=== PATIENT | female | born 1955 | race Caucasian/White ===

== ENCOUNTER → 2017-10-10 | Outpatient (CLI) | payer OTHER ==
[2016-03-11 16:30] VITALS: BP 110/61
[~2017-10-10] MED LIST: ASPI-612 PO; CYCL10TA2 PO; HYDR-2758 PO; LISI-338 PO; LISI2.5T PO; METO25TA4 PO; NITR0.4T SL; POLY17PO3 PO; TICA90TA PO
--- NOTE | 2017-10-10 13:43 | CARD ---
APPROVED REPORT EXAM: Two-dimensional and M-mode echocardiogram with Doppler and color Doppler. Other Information Quality : GoodHR: 52bpm INDICATION Cardiac Disease: CAD RISK FACTORS Obesity LEFT VENTRICLE The left ventricle is normal size. There is normal left ventricular wall thickness. The left ventricu lar systolic function is normal and the ejection fraction is within normal range. LV ejection fractio n of 55-60%. There is normal LV segmental wall motion. Transmitral Doppler flow pattern is normal for age. RIGHT VENTRICLE The right ventricle is normal size. The right ventricular systolic function is normal. ATRIA The left atrium size is normal. The right atrium size is normal. The interatrial septum is intact wit h no evidence for an atrial septal defect or patent foramen ovale as noted on 2-D or Doppler imaging. AORTIC VALVE The aortic valve is mildly thickened. Doppler and Color Flow revealed trace aortic regurgitation. The re is no significant aortic valvular stenosis. MITRAL VALVE The mitral valve is mildly thickened. There is no evidence of mitral valve prolapse. There is no mitr al valve stenosis. Doppler and Color-flow revealed trace mitral regurgitation. TRICUSPID VALVE The tricuspid valve is normal in structure and function. Doppler and Color Flow revealed no tricuspid valve regurgitation noted. There is no tricuspid valve prolapse or vegetation. There is no tricuspid valve stenosis. PULMONIC VALVE The pulmonary valve is normal in structure and function. Doppler and Color Flow revealed trace pulmon ic valvular regurgitation. GREAT VESSELS The aortic root is normal in size. IVC was not visualized. PERICARDIAL EFFUSION There is no pleural effusion. There is no evidence of significant pericardial effusion. Critical Notification Critical Value: No <Conclusion> The left ventricle is normal size. The left ventricular systolic function is normal and the ejection fraction is within normal range. LV ejection fraction of 55-60%. There is no significant aortic valvular stenosis. Doppler and Color Flow revealed trace aortic regurgitation. Doppler and Color-flow revealed trace mitral regurgitation. Doppler and Color Flow revealed no tricuspid valve regurgitation noted.
== END | disposition home or self-care (01) ==
LOC: ECHO 09:52
PROVIDERS: ATTEND Internal Medicine Cardiovascular Disease
DX: I25.10 Atherosclerotic heart disease of native coronary artery without angina pectoris (principal); E66.9 Obesity, unspecified
CPT/HCPCS: 93306

== ENCOUNTER → 2018-10-10 | Outpatient (CLI) | payer OTHER ==
[2018-01-02 11:00] VITALS: BP 128/67
[~2018-10-10] MED LIST changes: +ATOR20TA58 PO; +CETI10TA16 PO; +FURO40TA4 PO; -HYDR-2758 PO; +HYDR-2761 PO; +LEVO500T59 PO; +METF500T3 PO; +MONT10TA9 PO; +OMEP40CA5 PO; +POLY17PO28 PO; -POLY17PO3 PO; +POTA20TA4 PO
--- NOTE | 2018-10-10 10:11 | CARD ---
MR#: [id number] Date of Study: 10/10/2018 Ordering Physician: ENIO STRANGE, Referring Physician: ENIO STRANGE, Tech: Sheridan Batista [facility] APPROVED REPORT EXAM: Two-dimensional and M-mode echocardiogram with Doppler and color Doppler. Other Information Quality : Technically LimitedHR: 60bpm Rhythm : NSRTechnically limited study due to body habitus. INDICATION CAD 2D DIMENSIONS RVDd3.0 (2.9-3.5cm)Left Atrium(2D)3.7 (1.6-4.0cm) IVSd0.8 (0.7-1.1cm)Aortic Root(2D)3.0 (2.0-3.7cm) LVDd3.9 (3.9-5.9cm)LVOT Diameter2.1 (1.8-2.4cm) PWd0.9 (0.7-1.1cm)IVSs1.3 (0.8-1.2cm) LVDs2.6 (2.5-4.0cm)FS (%) 33.9 % PWs1.3 (0.8-1.2cm)SV41.2 ml LVEF(%)63.5 (>50%) M-Mode DIMENSIONS Left Atrium(MM)3.70 (2.5-4.0cm)Aortic Root3.60 (2.2-3.7cm) Aortic Valve AoV Peak Mathieu.130.2cm/sAoV VTI26.7cm AO Peak GR.6.8mmHgLVOT Peak Mathieu.89.0cm/s LVOT VTI 22.41cmAO Mean GR.3mmHg SYED (VMAX)1.58re1YCO (VTI)2.79cm2 Mitral Valve MV E Euatfeoz84.4cm/sMV DECEL KCAH446ed MV A Rhwcscrl03.4cm/sMV JIP88xv E/A Ratio1.0MVA (PHT)2.88cm2 LEFT VENTRICLE The left ventricle is normal size. There is mild concentric left ventricular hypertrophy. The left ve ntricular systolic function is normal. The Ejection Fraction is 55-60%. There is normal LV segmental wall motion. RIGHT VENTRICLE The right ventricle is normal size. There is normal right ventricular wall thickness. The right ventr icular systolic function is normal. ATRIA The left atrium size is normal. The right atrium size is normal. The interatrial septum is intact wit h no evidence for an atrial septal defect or patent foramen ovale as noted on 2-D or Doppler imaging. AORTIC VALVE The aortic valve is calcified but opens well. The aortic valve is trileaflet. Doppler and Color Flow revealed no significant aortic regurgitation. There is no significant aortic valvular stenosis. MITRAL VALVE The mitral valve is normal in structure and function. There is no evidence of mitral valve prolapse. There is no mitral valve stenosis. Doppler and Color-flow revealed trace mitral regurgitation. TRICUSPID VALVE The tricuspid valve is normal in structure and function. Doppler and Color Flow revealed no tricuspid valve regurgitation noted. There is no tricuspid valve prolapse or vegetation. There is no tricuspid valve stenosis. PULMONIC VALVE Pulmonic valve not well visualized. GREAT VESSELS The aortic root is normal in size. The ascending aorta is normal in size. PERICARDIAL EFFUSION There is no evidence of significant pericardial effusion. Critical Notification Critical Value: No <Conclusion> The left ventricular systolic function is normal. The Ejection Fraction is 55-60%. There is normal LV segmental wall motion. Doppler and Color-flow revealed trace mitral regurgitation. There is no evidence of significant pericardial effusion. Signed by : Vijay Jennings, Electronically Approved : 10/10/2018 10:09:58
== END | disposition home or self-care (01) ==
LOC: ECHO 08:44
PROVIDERS: ATTEND Internal Medicine Cardiovascular Disease
DX: I25.10 Atherosclerotic heart disease of native coronary artery without angina pectoris (principal)
CPT/HCPCS: 93306

== ENCOUNTER → 2019-08-25 | Outpatient (CLI) | payer MEDICARE, OTHER ==
[2018-01-02 11:00] VITALS: BP 128/67
[~2019-08-25] MED LIST changes: +MONT10TA49 PO; -MONT10TA9 PO; -NITR0.4T SL; +NITR0.4T24 SL; +OMEP40CA45 PO; -OMEP40CA5 PO
--- NOTE | 2019-08-25 17:30 | KCIC ---
Bilateral digital screening mammograms with 3-D tomosynthesis: Reason for examination: Routine screening. Comparison is made to previous studies dated 02/22/2014 and 09/15/2009. Bilateral mammograms in CC and oblique projections were obtained with 2-D imaging and 3-D tomosynthesis imaging on a [employer] unit and reviewed on the workstation. Interpretation was made with the benefit of CAD. The skin and nipples show no abnormalities. No abnormal axillary lymph nodes are seen. The breast parenchyma is predominantly fatty. (Breast density: Category A.) There is a new small circumscribed lesion at the 12:00 B position of the left breast measuring approximately 5 mm in size. Recommend further evaluation with ultrasound. There are no other new Dominant masses, suspicious calcifications or architectural distortion. Impression: New 5 mm circumscribed nodule at the 12:00 B position of the left breast. Recommend further evaluation with ultrasound. BI-RAD Category 0: Incomplete. Needs additional imaging evaluation. "Our facility is accredited by the [employer] Mammography Program." This patient's information has been entered into a reminder system for the patient to be notified with the results of her examination and a target date for the next mammogram. Electronically signed by: Danna Jimenez MD (08/25/2019 5:28 PM) [email or web address]
== END | disposition home or self-care (01) ==
LOC: KCIC MAMMO 10:23
PROVIDERS: ATTEND Family Medicine
DX: Z12.31 Encounter for screening mammogram for malignant neoplasm of breast (principal); N63.21 Unspecified lump in the left breast, upper outer quadrant
CPT/HCPCS: 77063; 77067

== ENCOUNTER → 2019-09-11 | Outpatient (CLI) | payer MEDICARE, OTHER ==
[2018-01-02 11:00] VITALS: BP 128/67
--- NOTE | 2019-09-11 15:47 | KCIC ---
MR of the right shoulder HISTORY: Right shoulder pain, injury over one month ago. TECHNIQUE: Routine multiplanar sequences are obtained. FINDINGS: Mild motion degradation. Acromioclavicular joint is mildly degenerative. No evidence of rotator cuff tear. No significant subdeltoid bursal effusion. No significant glenohumeral joint effusion. Heterogeneous signal within the posterosuperior labrum compatible with a tear. There appears to be a Bankart fracture of the anteroinferior glenoid with about 5 mm displacement, although characterization is limited due to some motion degradation. There is also some heterogeneous signal at the base of the anteroinferior labrum. Mild cystic-type change at the posterior lateral humeral head could be degenerative prior Hill-Sachs injury. No acute fracture is seen. No aggressive bone destruction. Heterogeneous signal identified within the subcoracoid recess probably blood product or synovitis. IMPRESSION: 1. Suspect Bankart fracture and/or anteroinferior labral tear, characterization somewhat limited by motion degradation. CT scan through the glenohumeral joint could further characterize fracture if indicated. 2. Posterosuperior labral tear. Electronically signed by: Francisco Chance MD (09/11/2019 3:45 PM) [id number]
== END | disposition home or self-care (01) ==
LOC: KCIC MRI 12:59
PROVIDERS: ATTEND Orthopaedic Surgery
DX: S43.491A Other sprain of right shoulder joint, initial encounter (principal); X58.XXXA Exposure to other specified factors, initial encounter; Y93.89 Activity, other specified; Y92.89 Other specified places as the place of occurrence of the external cause; Y99.8 Other external cause status
CPT/HCPCS: 73221

== ENCOUNTER → 2019-09-15 | Outpatient (CLI) | payer MEDICARE, OTHER ==
[2018-01-02 11:00] VITALS: BP 128/67
--- NOTE | 2019-09-15 13:44 | KCIC ---
Left breast ultrasound: Reason for examination: Small nodule on screening mammogram. Comparison is made to mammographic exam dated 08/25/2019. Ultrasound examination of the left breast and axilla was performed. In the 12:00 position 5 cm above the nipple, there is a hypoechoic circumscribed lesion measuring 4.5 mm in greatest dimension with a complicated cystic/fibrocystic appearance. This corresponds with the area of mammographic concern. No other cystic or solid nodules are seen. No abnormal appearing lymph nodes are seen in the axilla. IMPRESSION: 4.5 mm hypoechoic circumscribed nodule at the 12:00 position. Recommend 6 month follow-up with ultrasound. BI-RADS Category 3: Probably Benign. "Our facility is accredited by the [employer] Mammography Program." This patient's information has been entered into a reminder system for the patient to be notified with the results of her examination and a target date for the next mammogram. Electronically signed by: Danna Jimenez MD (09/15/2019 1:41 PM) [email or web address]
== END | disposition home or self-care (01) ==
LOC: KCIC US 12:50
PROVIDERS: ATTEND Family Medicine
DX: N63.21 Unspecified lump in the left breast, upper outer quadrant (principal)
CPT/HCPCS: 76641

== ENCOUNTER 2019-11-04 06:30 | Day surgery (SDC) | payer MEDICARE, OTHER ==
[~2019-11-04] VITALS: Ht 179.1 cm; Wt 104.0 kg
[~2019-11-04 06:30] MED LIST changes: +CLINDAMYCIN 900MG PREMIX 50 ML IV PRN; +CLOP75TA PO; +EXEN2PEN SQ; +GABA300C18 PO
[2019-11-04] MEDS ORDERED: TRAM100T2 PO (06:32)
[2019-11-04] MEDS ORDERED: PROCHLORPERAZINE 10 MG/2 ML VIAL. IV PRN (07:00)
[2019-11-04] MEDS ORDERED: fentaNYL PF VIAL 100 MCG/2 ML VIAL IV PRN (07:00)
[2019-11-04] MEDS ORDERED: DEXAMETHASONE SOD PHOS 4 MG/ML VIAL ONE ×2 (07:19→08:21)
[2019-11-04] MEDS ORDERED: MIDAZOLAM HCL/PF 2 MG/2 ML VIAL. ONE (07:19)
[2019-11-04] MEDS ORDERED: BUPIVACAINE MPF 0.5% 30 ML VIAL. ONE (07:19)
[2019-11-04 07:47] LABS: BASO # 0.1 x10^3/uL (0.0-0.2); BASO % 1 % (0-3); EOS # 0.3 x10^3/uL (0.0-0.7); EOS % 4 % (0-3); HEMATOCRIT 39.3 % (36.0-47.0); HEMOGLOBIN 13.3 g/dL (12.0-15.5); LYMPH # 2.3 x10^3/uL (1.0-4.8); LYMPH % 26 % (24-48); MEAN CORPUSCULAR HEMOGLOBIN 30 pg (25-35); MEAN CORPUSCULAR HGB CONC 34 g/dL (31-37); MEAN CORPUSCULAR VOLUME 88 fL (79-100); MONO # 0.7 x10^3/uL (0.0-1.1); MONO % 8 % (0-9); NEUT # 5.3 x10^3/uL (1.8-7.7); NEUT % 61 % (31-73); PLATELET COUNT 266 x10^3/uL (140-400); RED BLOOD COUNT 4.46 x10^6/uL (3.50-5.40); RED CELL DISTRIBUTION WIDTH 12.9 % (11.5-14.5); WHITE BLOOD COUNT 8.8 x10^3/uL (4.0-11.0)
[2019-11-04] MEDS: IV RINGERS,LACTATED 1000ML 1,000 ML IV SCH ×2 (07:52→13:20)
[2019-11-04] MEDS ORDERED: fentaNYL PF VIAL 100 MCG/2 ML VIAL ONE (08:12)
[2019-11-04] MEDS ORDERED: INSULIN LISPRO 100 UNIT/ML 3ML VIAL for OP,RR ONLY. SQ PRN (08:15)
[2019-11-04] MEDS ORDERED: PROPOFOL 20 ML IV ONE (08:21)
[2019-11-04] MEDS ORDERED: LIDOCAINE 2% PF 5 ML VIAL. ONE (08:21)
[2019-11-04] MEDS ORDERED: ONDANSETRON PF 4 MG/2 ML VIAL. ONE (08:21)
[2019-11-04] MEDS ORDERED: ROCURONIUM 50 MG/5 ML VIAL. ONE (08:22)
[2019-11-04] MEDS ORDERED: EPINEPHrine VIAL 30 MG/30 ML VIAL ONE (08:39)
--- NOTE | 2019-11-04 08:56 | HP ---
ADMIT DATE: 11/04/2019 CHIEF COMPLAINT: Right shoulder pain. HISTORY OF PRESENT ILLNESS: The patient presents for surgical evaluation and treatment today following ongoing shoulder pain, weakness, stiffness from a fall that occurred on 07/24. She has severe pain with any abduction away from the body and really only has relief of her pain keeping her arm down to the side and continues to have significant weakness. PAST MEDICAL HISTORY: Significant for venous insufficiency of her legs, coronary artery disease with ischemic cardiomyopathy, lumbar spondylosis and spondylolisthesis. PAST SURGICAL HISTORY: Cardiac catheterization and gallbladder surgery. FAMILY HISTORY: Heart disease in her mother who is ; diabetes; kidney disease and lupus in her father, who is ; heart disease in a sister; healthy brother; and healthy children. MEDICATIONS: Baby aspirin daily, nitroglycerin p.r.n., atorvastatin, metoprolol, cyclobenzaprine, tramadol, metformin XR 1000 mg daily, potassium 20 mEq daily, omeprazole, gabapentin 300 mg each day at bedtime. ALLERGIES: INCLUDE CODEINE, WHICH CAUSE HER DIZZINESS; PENICILLIN; ZOFRAN GAVE HER HEADACHE AND OTHER UNPLEASANT SIDE EFFECTS. REVIEW OF SYSTEMS: Still has the right shoulder pain. No other complaints. No chest pain, shortness of breath, recent fever, chills, other illness. PHYSICAL EXAMINATION: VITAL SIGNS: Per admission sheet. HEENT: Atraumatic, normocephalic. HEART: Regular rate and rhythm. LUNGS: Clear to auscultation bilaterally. ABDOMEN: Benign. EXTREMITIES: Examination of the right shoulder reveals active abduction to about 40 degrees only. She appears to have some adhesive capsulitis. I am not able to get her into a position of apprehension or elicit instability. She does have mild rotator cuff weakness in all planes, particularly resisted abduction, external rotation. Internal rotation strength is only slightly limited by pain. She has normal parascapular motion bilaterally, normal examination of the contralateral left shoulder, bilateral elbows and wrists. MRI of the shoulder shows a small Hill-Sachs lesion with a bony Bankart lesion and labral damage and a slight step-off of the anterior inferior fragment on MRI. IMPRESSION: Bony Bankart lesion, right shoulder. TREATMENT PLAN: She continues to be very limited in terms of the shoulder and is unable to really progress with physical therapy. I talked to her about examination under anesthesia, arthroscopic evaluation likely fixation of the bony Bankart lesion and potentially of the labrum along with ongoing physical therapy. She inquired about rotator cuff preoperatively and I told her that we would certainly evaluate that as well and do any other repairs or intervention as necessary. Her restrictions would depend on any repairs conducted and likewise physical therapy dependent on the restrictions and repairs that are indicated and performed. We talked about the possibility of infection, nerve or blood vessel damage, instability, continued pain, stiffness, weakness, other medical or anesthetic complications. All of her questions were answered. She wishes to proceed with surgical evaluation and treatment, which will be planned on an outpatient basis today. GONZALEZ JUAREZ MD DR: CULLEN/gemma JOB#: [id number] / [id number]
[2019-11-04] MEDS ORDERED: SEVOFLURANE > 120 MINUTES. IH ONE (09:35)
[2019-11-04] MEDS ORDERED: ePHEDrine PF IN SALINE 50 MG/10 ML SYRINGE. IV ONE (09:36)
[2019-11-04 10:05] LABS: CALCIUM 9.1 mg/dL (8.5-10.1); GFR 55.6
[2019-11-04] MEDS ORDERED: diphenhydrAMINE 50 MG/ML VIAL ONE (10:12)
[2019-11-04] MEDS ORDERED: GLYCOPYRROLATE 1 MG/5 ML VIAL. ONE (10:12)
[2019-11-04] MEDS ORDERED: NEOSTIGMINE METHYLSULFATE 5 MG/5 ML SYRINGE. ONE (10:12)
[2019-11-04 10:15] LABS: POTASSIUM 2.5 mmol/L (3.5-5.1)
[2019-11-04] MEDS: POTASSIUM CHLORIDE 10MEQ 100 ML IV SCH ×4 (10:30→13:39)
[2019-11-04] MEDS ORDERED: OXYC1TAB19 PO (11:26)
--- NOTE | 2019-11-04 11:39 | DISCH ---
DISCHARGE INSTRUCTIONS Condition on Discharge Condition on Discharge: Stable Activity After Discharge Activity Instructions for Disc: Other, see below (May remove arm from immob ilizer for shower and pendulum exercises) Bathing Instructions: No Tub Bath until see Diet after Discharge Diet after Discharge: Diabetic No Calorie Level Wound Incision Care Wound/Incision Care: Ice to area for comfort, Change dressing (May remove dressing in 3 days may then shower no soaking until sutures removed, report any redness drainage or other concerns) Contacting the DRMarc after DC Call your doctor for: Concerns you may have Follow-Up Follow up with: Dr. Olivo 1 week Follow Up With: Dr. Antonio Sunday11/07/2019 for recheck of electrolytes/potassium GONZALEZ OLIVO MD Nov 04, 2019 11:39
[2019-11-04] MEDS: fentaNYL PF VIAL 100 MCG/2 ML VIAL IV PRN ×2 (11:52→12:41)
--- NOTE | 2019-11-04 12:16 | PDOC4 ---
Operative Note Operative Note Date of surgery: 11/04/2019 Preoperative diagnosis: Right shoulder pain weakness and instability status post fall with bony Bankart lesion on MRI Postoperative diagnosis: Stable bony Bankart lesion and anterior inferior labrum. Large unstable slap lesion, Hill-Sachs defect in cartilage along with additional chondral flap tear full thickness over posterior and central articular humeral surface Operative procedure: Right shoulder arthroscopy extensive labral repair biceps tenodesis, debridement of chondral flap tear and remplissage Surgeon: Pallavi Assist: Ramírez Bell Anesthesia Gen. plus scalene block Estimated blood loss: 10 mL Complications: None, patient remained asymptomatic, but preoperative lab results were called in to surgery near the end of the surgical procedure with a critically low potassium of 2.5, rechecked in recovery room at 2.8, although she remains asymptomatic she is receiving IV potassium replacement and I communicated with her primary care physician Dr. Antonio, who recommended that we double up her oral potassium until scheduled follow-up with his office on Sunday at which time they will recheck her potassium. As we got further direction from the patient however she said she was taking no potassium at all until she waited on her results from her primary care physician and therefore has no current prescription for potassium at all. I therefore wrote for her normal 20 mEq dose daily and will continue the current plan of rechecking her potassium on Sunday. Operative indications: Please see my orthopedic clinic note for detailed operative indications and briefly note that patient is a 64-year-old [id number] female who had a fall back in July sustaining a bony Bankart lesion and has had continued severe pain and weakness really not responding well to physical therapy. MRI findings showed a bony Bankart lesion and I gone over with her the recommended evaluation and treatment and also reviewed with her today that intraoperative judgment including her examination under anesthesia and arthroscopic findings would direct her further definitive treatment appropriately based on those findings and tentatively I would expect the possibility of performing a Bankart repair or other repairs as necessary to help with her stability depending on her intraoperative findings and we would address any additional pathology as appropriate. We talked that the likewise restrictions on an ongoing basis would be dependent on the specific repairs conducted and likely she would have to be in an immobilizer and restricted motion in physical therapy initially based on the expected repairs again which could be modified based on her intraoperative findings. All her questions were answered she wishes to proceed with surgical evaluation and treatment and understands the possibility of ongoing instability pain weakness infection nerve or blood vessel damage medical or other anesthetic complications among others Operative text: Patient was identified procedure verified patient placed in the supine position on the operating table. After adequate amounts of general anesthesia plus a pre-existing scalene block were obtained she was placed decubitus right side up on the large beanbag all bony prominences were well- padded including an axillary roll. The right shoulder was then examined under anesthesia and showed some mild subluxation anteriorly with a xxlh-wwe-pjmee procedure and no multidirectional instability she had full range of motion of the right shoulder. The right shoulder was then prepped and draped in standard sterile fashion placed in the arthroscopic arm garcia with a total of 10 pounds of traction and after timeout was performed patient procedure identified and verified a posterior portal was established and the right shoulder joint entered without difficulty an anterior portal established using spinal needle localization and the right shoulder joint was then systematically examined and the superior labrum had a large unstable tear from 10 o'clock position posteriorly to approximately 3:00 anteriorly and had significant labral fraying as well. The anterior inferior labrum appeared intact as did the anterior- inferior capsule and bony Bankart which was probed and found to be intact. Her rotator cuff showed a partial thickness undersurface tear which was debrided back to stable tissue she did have a Hill-Sachs lesion present in addition to the normal bare area of the humerus and a large chondral flap tear along with a central full-thickness defect of the cartilage on the humeral head. The biceps tendon was noted to be significantly irritated and showing some mild subluxation with an overall visibly intact subscapularis footprint. I therefore elected to proceed with a biceps tenodesis and repair of the extensive labral tear. Biceps was tagged and tenotomized and a posterior superior portal was established through the rotator cuff muscle and to all suture Franky anchors were placed at the 1:00 and 11:00 positions respectively after burring off the superior glenoid for good bleeding bony tissue with the arthroscopic shaver and sutures were placed passed and tied with sliding locking knots backed up by alternating post- half hitches to reapproximate the superior labrum to a good stable rim of tissue. Anterior labrum was debrided as was the chondral flap tear of the humeral head. The Hill-Sachs lesion was then debrided to bleeding bony tissue and a spinal needle localized a small portal for placement of an all suture Franky anchor which was retrieved through the repositioned posterior lateral portal and the original suture placement likewise retrieved over the rotator cuff to achieve a mattress repair and complete the remplissage portion of the procedure which did restore her stability as expected. Biceps tenodesis was then performed with a Cleanify fastener which was placed along with the trimmed and tensioned biceps tendon into a 7 mm x 20 mm depth hole in the lower portion of the bicipital groove with excellent tension and fixation noted. Portals were then closed with buried Vicryl and skin closure with nylon sterile dressings were applied patient was placed in an immobilizer transferred to recovery room in stable condition having tolerated the procedure well. Ramírez Bell nurse practitioner was present for the procedure and assisted in the prepping draping positioning visualization and closure GONZALEZ JUAREZ MD Nov 04, 2019 12:16
[2019-11-04] MEDS ORDERED: POTA20TA4 PO (13:46)
[2019-11-04 14:59] VITALS: BP 130/62
[2019-11-04] MEDS ORDERED: oxyCODONE/APAP 7.5/325 1 TAB TABLET PO ONE (15:00)
== END 2019-11-04 16:15 | disposition home or self-care (01) ==
LOC: SURG 06:30
PROVIDERS: ATTEND Orthopaedic Surgery
DX: M25.511 Pain in right shoulder (principal); M24.411 Recurrent dislocation, right shoulder; M24.111 Other articular cartilage disorders, right shoulder; S43.431A Superior glenoid labrum lesion of right shoulder, initial encounter; S42.201A Unspecified fracture of upper end of right humerus, initial encounter for closed fracture; I87.2 Venous insufficiency (chronic) (peripheral); I25.10 Atherosclerotic heart disease of native coronary artery without angina pectoris; M47.896 Other spondylosis, lumbar region; I25.5 Ischemic cardiomyopathy; Z98.890 Other specified postprocedural states; Z82.49 Family history of ischemic heart disease and other diseases of the circulatory system; Z79.899 Other long term (current) drug therapy; Z79.84 Long term (current) use of oral hypoglycemic drugs; Z79.82 Long term (current) use of aspirin; Z88.6 Allergy status to analgesic agent; Z88.8 Allergy status to other drugs, medicaments and biological substances; Z88.0 Allergy status to penicillin; W19.XXXA Unspecified fall, initial encounter
CPT/HCPCS: 29806; 29823; 29828; 36415; 80048; 82962; 84132; 85025; A7015; C1713; J0171; J1100; J1200; J2001; J2250; J2704; J2710; J3010; J3480; J3490; J7120; J2405

== ENCOUNTER → 2019-11-06 | Outpatient (CLI) | payer MEDICARE, OTHER ==
[2019-11-04 14:59] VITALS: BP 130/62
[~2019-11-06] MED LIST changes: -CLINDAMYCIN 900MG PREMIX 50 ML IV PRN; +OXYC1TAB19 PO; +TRAM100T2 PO
--- NOTE | 2019-11-06 11:09 | RAD ---
MR#: [id number] Date of Study: 11/06/2019 Ordering Physician: DELVIS DOUGLASS, Referring Physician: DELVIS DOUGLASS, Tech: Michelle White RVT,[facility] APPROVED REPORT Patient Location : OUT-PATIENT Indications Lower Extremity Edema : Varicose Veins Greater Saphenous Veins (GSV) Significant venous relux noted in the RIGHT GSV at the following levels : Superficial Femoral Junctio n Findings Grayscale images of the bilateral saphenofemoral junctions are grossly unremarkable. No evidence of t hrombus. The right great saphenous vein measures 4 mm in the left great saphenous vein measures 4.5 mm. No reid dence of reflux is noted in the bilateral greater saphenous veins. Bilateral lesser saphenous veins also do not show any evidence of reflux. Critical Notification Critical Value: No <Conclusion> No significant reflux. Signed by : Delvis Douglass, Electronically Approved : 11/06/2019 11:09:48
== END | disposition home or self-care (01) ==
LOC: US 08:33
PROVIDERS: ATTEND Internal Medicine Cardiovascular Disease
DX: I87.2 Venous insufficiency (chronic) (peripheral) (principal)
CPT/HCPCS: 93970

== ENCOUNTER → 2019-11-07 | Outpatient (CLI) | payer MEDICARE, OTHER ==
[2019-11-04 14:59] VITALS: BP 130/62
[2019-11-07 13:19] LABS: CALCIUM 9.2 mg/dL (8.5-10.1); GFR 55.6; MAGNESIUM 1.7 mg/dL (1.8-2.4); POTASSIUM 3.2 mmol/L (3.5-5.1)
== END | disposition home or self-care (01) ==
LOC: LAB 12:33
PROVIDERS: ATTEND Family Medicine
DX: E87.6 Hypokalemia (principal)
CPT/HCPCS: 36415; 80048; 83735

== ENCOUNTER → 2020-05-12 | Outpatient (CLI) | payer MEDICARE, OTHER ==
--- NOTE | 2020-05-12 14:09 | KCIC ---
Left breast ultrasound: Reason for examination: Follow-up nodule. Comparison is made to previous study dated 09/15/2019. Left breast ultrasound in the area of mammographic concern and at the axilla was performed. At the 12:00 position 5 cm from the nipple, there continues to be a 4 x 3.7 mm hypoechoic lesion with a benign fibrocystic appearance which shows decrease in overall size. No other cystic or solid lesions are seen. No abnormal appearing lymph nodes are seen in the axilla. IMPRESSION: Small fibrocystic lesion at the 11:00 position which shows interval decrease in size. Recommend routine mammographic follow-up. BI-RADS Category 2: Benign. "Our facility is accredited by the [employer] Mammography [employer]." This patient's information has been entered into a reminder system for the patient to be notified with the results of her examination and a target date for the next mammogram. Electronically signed by: Danna Jimenez MD (05/12/2020 2:06 PM) [id number]
== END | disposition home or self-care (01) ==
LOC: KCIC US 12:21
PROVIDERS: ATTEND Family Medicine
DX: N64.89 Other specified disorders of breast (principal); R92.8 Other abnormal and inconclusive findings on diagnostic imaging of breast
CPT/HCPCS: 76641

== ENCOUNTER → 2021-01-06 | Outpatient (CLI) | payer MEDICARE, OTHER ==
[~2021-01-06] MED LIST changes: -ASPI-612 PO; +ASPI-886 PO; -LISI-338 PO; +LISI-517 PO; -POLY17PO28 PO; +POLY17PO52 PO
--- NOTE | 2021-01-06 12:52 | RAD ---
EXAMINATION: MRI RIGHT SHOULDER WITHOUT IV CONTRAST CLINICAL HISTORY: Right shoulder tendinosis. History of unspecified shoulder surgery TECHNIQUE: Multiplanar multisequential images obtained through the shoulder without intravenous contr ast. COMPARISON: MRI right shoulder 09/11/2019, right shoulder radiographs 08/27/2019 FINDINGS: TENDONS: - Supraspinatus: Mild tendinosis without tear. - Infraspinatus: Mild tendinosis without tear. - Subscapularis: Within normal limits. - Teres Minor: Within normal limits. - Biceps Tendon: Interval biceps tenodesis. MUSCLES: Mild fatty replacement in the teres minor muscle, nonspecific and similar to prior study. No mass visualized in the quadrilateral space. LABRUM: Labral anchors in the superior glenoid. Thin linear hyperintense cleft through the base of th e superior labrum, possibly postsurgical. Increased posterior labral degeneration and degenerative te aring. Additional inferior and anterior inferior labral degeneration, similar to prior study. GLENOHUMERAL JOINT: - Joint Fluid: No joint effusion or synovitis. - Cartilage: Small full-thickness chondral fissure in the posterior superior humeral head, not defini tively visualized on prior study. ACROMIOCLAVICULAR JOINT: Mild hypertrophic degenerative changes. BONES/MARROW: No evidence of acute fracture or suspicious marrow replacing process. Chronic reactive changes in the greater tuberosity. OTHER: Multifocal susceptibility artifact in the subcutaneous soft tissues along the anterior and pos terior aspects of the shoulder related to prior surgery. Mild thickening of the subacromial/subdeltoi d bursa, similar to prior study. IMPRESSION: Postoperative findings as described related to interval superior labral repair and biceps tenodesis. Thin linear cleft through the base of the superior labrum, possibly postsurgical, and mildly increase d posterior labral degeneration and degenerative tearing. Mild rotator cuff tendinosis without full-thickness tear. Electronically signed by: Pawel Grant DO (01/06/2021 12:49 PM) [id number]
== END ==
LOC: MRI 08:59
PROVIDERS: ATTEND Physical Medicine & Rehabilitation Sports Medicine
DX: S43.421A Sprain of right rotator cuff capsule, initial encounter (principal); M67.813 Other specified disorders of tendon, right shoulder; M19.011 Primary osteoarthritis, right shoulder; X58.XXXA Exposure to other specified factors, initial encounter; Y93.89 Activity, other specified; Y92.89 Other specified places as the place of occurrence of the external cause; Y99.8 Other external cause status
CPT/HCPCS: 73221

== ENCOUNTER → 2021-03-14 | Outpatient (CLI) | payer MEDICARE, OTHER ==
[~2021-03-14] MED LIST changes: +GADOTERATE 5 MMOL/10ML VIAL. INT ART ONE; +IOHEXOL 300 MG/ML 50 ML VIAL. INT ART ONE; +LIDOCAINE 1% Multi-Dose 20 ML VIAL. ID ONE
--- NOTE | 2021-03-14 14:12 | KCIC ---
Exam: Right hip pre-imaging arthrogram 03/14/2021 2:09 PM. Comparison: None. Indication: Pain. Technique: Informed verbal and written consent was obtained after the explanation of risks, benefits, and possib le complications. Prior to the procedure, final verification was performed. Utilizing sterile technique, a right hip arthrogram was performed under fluoroscopy. 1% Lidocaine was administered as a local anesthetic. A 22-gauge spinal needle was inserted into the femoroacetabular joint capsule under fluoroscopic guidance. Needle tip positioning was confirmed utilizing 3 cc of iod inated contrast. Subsequently, 15 cc dilute gadolinium was injected into the hip joint capsule. A sin gle spot view was obtained. The patient tolerated the procedure well, and there were no immediate com plications. The patient was escorted to MRI with appropriate pre-imaging and post-discharge instructi ons. Fluoroscopy time: 21 seconds Number of images: 1 Impression: Successful right hip pre-imaging arthrogram. Please see separately dictated MRI right hip report for further information. Electronically signed by: Bryanna Lamb MD (03/14/2021 2:10 PM) [id number]
--- NOTE | 2021-03-14 15:41 | KCIC ---
Study: MRI arthrogram of the right hip INDICATION: Chronic right hip pain. COMPARISON: Correlation is made to a CT abdomen/pelvis from 12/31/2017 TECHNIQUE: Multiplanar MR imaging of the right hip performed after the intra-articular injection of g adolinium. The details of the procedure, to include the volume of contrast administered, are describe d in a separate report. FINDINGS: Bones: No avascular necrosis or stress reaction. Mild cam-type deformity. No subchondral marrow edema . Moderate arthrosis at the lower aspect of the partially imaged right SI joint. Labrum/cartilage: Nondisplaced labral tear located anterior/superior on image 12 series 5. No full-th ickness chondral defect is identified or definitive chondral delamination. Ligamentum teres: Diminutive but appears to be intact. Greater trochanteric bursa: Within normal limits. Musculotendinous: Chronic partial-thickness tearing of the gluteus medius and minimus which are somew hat diminutive and with a component of minimus and medius muscular fatty infiltration. No findings to suggest ischiofemoral impingement. Miscellaneous: No pericapsular edema or hip joint loose body. A few colonic diverticuli are noted. IMPRESSION: 1. Focal nondisplaced tear of the labrum at the anterior/superior aspect. No full-thickness chondral defect is identified or chondral delamination. There is a mild cam deformity. 2. Somewhat diminutive gluteus medius and minimus tendons at the insertions suggesting chronic parti al-thickness tearing. No acute full-thickness tendon disruption. 3. Diminutive but intact ligamentum teres. Electronically signed by: HIEU YU MD (03/14/2021 3:39 PM) [id number]
== END | disposition home or self-care (01) ==
LOC: KCIC 12:36
PROVIDERS: ATTEND Physical Medicine & Rehabilitation Sports Medicine
DX: G89.29 Other chronic pain (principal); M16.11 Unilateral primary osteoarthritis, right hip; I25.10 Atherosclerotic heart disease of native coronary artery without angina pectoris; I10 Essential (primary) hypertension; E78.00 Pure hypercholesterolemia, unspecified; K21.9 Gastro-esophageal reflux disease without esophagitis; F41.9 Anxiety disorder, unspecified; Z87.440 Personal history of urinary (tract) infections; Z98.51 Tubal ligation status; Z90.49 Acquired absence of other specified parts of digestive tract; Z98.890 Other specified postprocedural states; Z87.891 Personal history of nicotine dependence; Z79.82 Long term (current) use of aspirin; Z79.84 Long term (current) use of oral hypoglycemic drugs; Z88.0 Allergy status to penicillin; Z88.8 Allergy status to other drugs, medicaments and biological substances; Z88.5 Allergy status to narcotic agent; Z82.49 Family history of ischemic heart disease and other diseases of the circulatory system; Z83.3 Family history of diabetes mellitus
CPT/HCPCS: 27093; 73719; 77002; A9575; J3490; Q9967; 73525

== ENCOUNTER → 2021-05-20 | Outpatient (CLI) | payer MEDICARE, OTHER ==
[~2021-05-20] MED LIST changes: -GADOTERATE 5 MMOL/10ML VIAL. INT ART ONE; -IOHEXOL 300 MG/ML 50 ML VIAL. INT ART ONE; -LIDOCAINE 1% Multi-Dose 20 ML VIAL. ID ONE; -OMEP40CA45 PO; +OMEP40CA7 PO; +REGADENOSON 0.4 MG/5 ML DISP.SYRIN. IV ONE
--- NOTE | 2021-05-20 12:54 | RAD ---
MR#: [id number] Date of Study: 05/20/2021 Ordering Physician: ENIO STRANGE, Referring Physician: ART STEINBERG Tech: ONEAL Tate, ARRT (R) (N) APPROVED REPORT Test Type: Pharmacological Stress Nurse/Tech: Yulia Bell RN Test Indications: CAD Cardiac History: AL 2014, See EMR. Medications: See EMR. Medical History: X-Smoker quit 2014, See EMR. Resting ECG: SB Resting Heart Rate: 50 bpm Resting Blood Pressure: 140/71mmHg Pretest Chest Pain: No chest pain Nurse/Tech Notes Lungs CTA, Heart tones regular. Consent: The procedure was explained to the patient in lay terms. Informed consent was witnessed. Jb eout was entered into [employer] History and Stress Test performed by RT Jade DonaldsonR) (N) Pharm. Details Pharmacologic stress testing was performed using 0.4mg per 5ml of regadenoson given intravenously ove r 7-10 seconds. Stress Symptoms Dyspnea, Nausea, & Dizziness. All symptoms had resolved by the end of the stress test. POST EXERCISE Reason for Termination: Infusion complete Max HR: 67 bpm Max Blood Pressure: 157/66mmHg Blood Pressure response to exercise: Normal blood pressure response during stress. Heart Rate response to exercise: WNL Chest Pain: No. Arrhythmia: No. ST Change: No. INTERPRETATION Stress EKG Conclusion: Baseline EKG showed sinus rhythm. No ischemic changes at peak stress. No arr hythmias. Imaging Protocol IMAGE PROTOCOL: Rest Tc-99m/stress Tc-99m 1 day Rest: Stress: Viability: Radiopharm.Tc99m [id number] Sestamibi Milp46uUv 33mCi Img Date 05/20/2021 05/20/2021 Inj-Img [id number]. 60min. Rest Admin Site:IV - Right HandAdministrator:HEATHER Pearl Stress Admin Site: IV - Right HandAdministrator: RT Mendoza (R)(N) STRESS DATA End Diast. Vol.87.0mlAv. Heart Rate60.0bpm End Syst. Vol.14.0mlCO Index BSA0.0L/min Myocardial Hcpb432.0gEject. Tyorxast03.0% Stress Rates Pk. Fill Rate2.82EDV/secLVtime Pk. Fill 157.51msec Pk. Empty Rate3.48ESV/secLVtime Pk. Ywpxd116.95msec 1/3 Pk. Fill1.81EDV/sec Stress Scores Regional WT1.00Summed WT5.00 Regional WM0.00Summed WM0.00 LV Perfusion Scintigraphic images showed anteroapical wall thinning most probably breast attenuation artifact but no other fixed or reversible defects seen. Wall Motion Normal left ventricular systolic function with ejection fraction calculated at 86% LV Perf. Quant 17 Seg. SSS2.00 17 Seg. SRS3.00 17 Seg. SDS0.00 Stress Defect Extent (% LAD)14.40Rest Defect Extent (% LAD)20.60Rev. Defect Extent (% LAD)0.00 Stress Defect Extent (% LCX) 0.00Rest Defect Extent (% LCX)0.00Rev. Defect Extent (% LCX)0.00 Stress Defect Extent (% RCA)0.00Rest Defect Extent (% RCA)0.00Rev. Defect Extent (% RCA)0.00 Stress Defect Extent (% ALLYSON)5.20Rest Defect Extent (% ALLYSON)7.60Rev. Defect Extent (% ALLYSON)0.00 Conclusion 1. Regadenoson cardioisotope stress test showed breast attenuation artifact without any evidence for ischemia or infarct. 2. Normal left ventricular systolic function with ejection fraction calculated at 86%. 3. Low risk for cardiac events. Signed by : Vijay Jennings, Electronically Approved : 05/20/2021 12:53:54
== END ==
LOC: NM 09:09
PROVIDERS: ATTEND Internal Medicine Cardiovascular Disease
DX: I25.10 Atherosclerotic heart disease of native coronary artery without angina pectoris (principal)
CPT/HCPCS: 78452; 93017; A9500; J2785

== ENCOUNTER → 2021-07-25 | Outpatient (CLI) | payer MEDICARE, OTHER ==
[~2021-07-25] MED LIST changes: -LISI2.5T PO; +LISI2.5T12 PO; +POTA-121 PO; -POTA20TA4 PO; -REGADENOSON 0.4 MG/5 ML DISP.SYRIN. IV ONE
--- NOTE | 2021-07-25 16:16 | RAD ---
Bilateral lower extremity arterial duplex ultrasound 07/25/2021 INDICATION: Bilateral rest pain. Bilateral foot numbness. COMPARISON STUDY: None. Discussion: Ultrasound evaluation of the major arteries of the bilateral lower extremities performed including color Doppler imaging spectral analysis. There is moderate to severe diffuse atherosclerotic vascular disease. Biphasic waveforms are seen throughout the bilateral lower extremities. No focal occlusions are ident ified. No focal aneurysms are seen. There is near doubling of velocities from the mid to distal right superficial femoral artery which could reflect hemodynamically significant stenosis. Blunting of mor e distal waveforms noted. There is focal elevation of velocities in the distal left superficial femor al artery, which may represent a moderate stenosis. No other focal sonographic abnormalities are iden tified. IMPRESSION: 1. Moderate diffuse atherosclerotic vascular disease 2. Focal elevations in velocity in the distal superficial femoral arteries bilaterally which could re flect hemodynamically significant stenoses. Consider CT or conventional angiography for further evalu ation as clinically indicated. Electronically signed by: Bryan Tyler MD (07/25/2021 4:14 PM) [id number]
== END ==
LOC: US 09:15
PROVIDERS: ATTEND Podiatrist Foot & Ankle Surgery
DX: I73.9 Peripheral vascular disease, unspecified (principal)
CPT/HCPCS: 93925

== ENCOUNTER → 2021-10-19 | Outpatient (CLI) | payer MEDICARE, OTHER ==
[~2021-10-19] MED LIST changes: +CYCL10TA19 PO; -CYCL10TA2 PO; -LISI-517 PO; +LISI5TAB15 PO
[2021-10-20 18:09] LABS: ANA INTERP Negative (.)
[2021-10-20 20:10] LABS: ALBUM 3.6 g/dL (2.9-4.4); ALPHA 1 0.2 g/dL (0.0-0.4); ALPHA 2 0.7 g/dL (0.4-1.0); GAMMA 0.8 g/dL (0.4-1.8); PROTEIN TOTAL 6.4 g/dL (6.0-8.5); SPEP AG RATIO 1.3 (0.7-1.7)
== END ==
LOC: LAB 11:46
PROVIDERS: ATTEND Psychiatry & Neurology Neurology with Special Qualifications in Child Neurology
DX: G62.89 Other specified polyneuropathies (principal); R20.0 Anesthesia of skin; R53.1 Weakness
CPT/HCPCS: 36415; 82607; 82746; 84165; 84443; 85651; 86038

== ENCOUNTER → 2022-01-13 | Outpatient (CLI) | payer MEDICARE, OTHER ==
[~2022-01-13] MED LIST changes: +TRAM100T10 PO; -TRAM100T2 PO
== END ==
LOC: LAB 11:14
PROVIDERS: ATTEND Orthopaedic Surgery Sports Medicine
DX: Z01.812 Encounter for preprocedural laboratory examination (principal); U07.1 COVID-19
CPT/HCPCS: U0003

== ENCOUNTER 2022-02-14 06:10 | Day surgery (SDC) | payer MEDICARE, OTHER ==
[~2022-02-14] VITALS: Ht 179.1 cm; Wt 105.9 kg
[~2022-02-14 06:10] MED LIST changes: +DULO60CA45 PO; +HYDROmorphone 2 MG/ML INJ. IVP PRN; +IV RINGERS,LACTATED 1000ML 1,000 ML IV SCH; +KETOROLAC 30MG VIAL 30 MG, ROPIVacaine 0.5% PF 60 ML, EPINEPHrine 0.5 MG in IV NORMAL S... INT ART ONE; +METF500T16 PO; +MORPHINE SULFATE 2 MG/ML INJ. IVP PRN; +POTA20TA4 PO; +PREG50CA91 PO; +PROCHLORPERAZINE 10 MG/2 ML VIAL. IVP PRN; +fentaNYL PF VIAL 100 MCG/2 ML VIAL IVP PRN
[2022-02-14 06:32] VITALS: BP 151/63
[2022-02-14] MEDS ORDERED: fentaNYL PF VIAL 100 MCG/2 ML VIAL ONE (06:46)
[2022-02-14] MEDS ORDERED: ROCURONIUM 50 MG/5 ML VIAL. ONE (06:47)
[2022-02-14] MEDS ORDERED: SUCCINYLCHOLINE 200 MG/10 ML VIAL. ONE (06:51)
[2022-02-14] MEDS ORDERED: LIDOCAINE 2% PF 5 ML VIAL. ONE (06:52)
[2022-02-14] MEDS ORDERED: PROPOFOL 10 MG/ML (20ML) VIAL. IV ONE (06:52)
[2022-02-14] MEDS ORDERED: DEXAMETHASONE SOD PHOS 4 MG/ML VIAL ONE (06:52)
[2022-02-14] MEDS ORDERED: SEVOFLURANE 61 TO 120 MINUTES. IH ONE (06:52)
[2022-02-14] MEDS ORDERED: KETOROLAC 30MG VIAL 30 MG, ROPIVacaine 0.5% PF 60 ML, EPINEPHrine 0.5 MG, MORPHINE SULF... INT ART ONE (07:30)
[2022-02-14] MEDS ORDERED: GLYCOPYRROLATE 1 MG/5 ML VIAL. ONE (08:09)
[2022-02-14] MEDS ORDERED: SUGAMMADEX SODIUM 200 MG/2 ML VIAL. IVP ONE (08:30)
[2022-02-14] MEDS ORDERED: OXYC-325 PO (09:10)
--- NOTE | 2022-02-14 09:11 | DISCH ---
DISCHARGE INSTRUCTIONS Condition on Discharge Condition on Discharge: Stable Activity After Discharge Activity Instructions for Disc: Other, see below Other activity instructions: brace in place when walking Bathing Instructions: No Tub Bath until see Weight Bearing Status after Di: Partial weight bearing Diet after Discharge Diet after Discharge: Regular, Diabetic No Calorie Level Wound Incision Care Wound/Incision Care: Ice to area for comfort, Change dressing Other wound/incision instructi: change dressing in 2 days Contacting the DRMarc after DC Call your doctor for: Concerns you may have Follow-Up Follow up with: Sydnee in 2 wks Treatment/Equipment after DC Adaptive Equipment Issued: EDMUND Martínez II, MD Feb 14, 2022 09:11
[2022-02-14] MEDS ORDERED: HYDROmorphone 2 MG/ML INJ. ONE (09:18)
--- NOTE | 2022-02-14 09:19 | PDOC4 ---
Operative Note Operative Note Date of procedure: 02/14/2022 Surgeon: Steven Tena Assistants: Jose A Todd and Anai Mcclain, both certified indoor environmentalist Preoperative diagnosis: Right hip abductor tear Postoperative diagnosis: Same Procedure performed: Open right hip abductor repair Anesthesia: General Blood loss: 10 mL Findings: Interstitial split with loss of normal-appearing tendinous architecture Components inserted: [employer] helacoil suture anchor Complications: None Reason for procedure: Patient is a very pleasant 66-year-old female who is lateral hip pain have been bothering her for quite some time. She had tried and failed multiple conservative therapies and was having difficulty walking as far she will would have like to, please see my outpatient note for further details. Clinical and radiographic examination including MRI were consistent with the preoperative diagnosis and we had had a discussion of the risk benefits and alternatives and she wished to proceed. Description of procedure: Patient was greeted in the preoperative area by myself or the correct extremity was verified and marked. She was taken to the operative suite and antibiotics were started as she was brought back. Once in the operating room she was transferred gently supine to the operating room table and underwent successful induction of a general anesthetic. She was then placed in a lateral decubitus position with the right side up and secured to bed with her hip positioning device, axillary roll and down pressure points were padded. After this we proceeded to prep and drape right lower extremity and hip in her usual sterile fashion including an Ioban sandwich. I then palpated marked surface anatomy and wilder a line for my planned incision. We then conducted our standard preoperative timeout. I then incised skin with a scalpel and the cord with my line and dissected subcutaneous tissue electrocautery, cauterizing bleeders as they were encountered. We placed self-retaining retractors as we proceeded deeper. Identified the fascia brian of the thigh and used a lap sponge to sweep aside some of the adherent subcutaneous tissue for later identification and repair. A padded Griffiths was brought in and the patient's knee was rested on this, I incised the fascia in line with the skin incision in order to expose the underlying hip abductors. I took time to remove some bursal tissue, some of it was thick and fibrotic around the distal portion. After identifying the abductor tendon I could visualize and palpate an area of defect and used a scalpel to incise the very thin overlying portion of this. I noted loss of normal appearing tendinous architecture at a couple spots in this area and used a rongeur to debride these. After inspecting the rest of the abductor tendon I noted no other areas of concern and proceeded to use in awl to place my suture anchor which I then screwed in place and it had good fixation. I then used a free needle to pass the limbs through in a simple configuration and tied these down securely. I supplemented this with simple interrupted 0 Vicryl as well. After this I repaired the fascia and used simple interrupted 0 Vicryl as well. We then used inverted interrupted 0 Vicryl in a multilayered fashion to close subcutaneous tissue after injected my periarticular mixture and appear incisional soft tissues. Inverted interrupted 2-0 Vicryl was used for the immediate subcutaneous tissue and running 3-0 suture in a buried subcuticular fashion was used for skin. The area was cleansed and dried Xeroform, gauze and ABD and tape were applied for dressing. She tolerated surgery well. Prior to wound closure all counts correct x2. No complications. At the conclusion, she was laid supine and transferred gently supine to the recovery room cart and taken to PACU in a stable and extubated condition with her postoperative brace in place. Postoperative plan is for her to be on restricted weightbearing, using crutches and her brace. We will get her started on physical therapy. I will see her back in 2 weeks, sooner should a problem arise STEVEN TENA II, MD Feb 14, 2022 09:19
[2022-02-14] MEDS: INSULIN LISPRO 100 UNIT/ML 3ML VIAL for OP,RR ONLY. SQ PRN ×2 (09:56→11:12)
[2022-02-14] MEDS ORDERED: oxyCODONE/APAP 5/325 1 TAB TABLET PO ONE (10:15)
[2022-02-14 10:40] VITALS: BP 116/54
[2022-02-14] MEDS ORDERED: INSULIN LISPRO 100 UNIT/ML 3ML VIAL for OP,RR ONLY. SQ ONE ×2 (11:15)
== END 2022-02-14 11:15 | disposition home or self-care (01) ==
LOC: SURG 06:10
PROVIDERS: ATTEND Orthopaedic Surgery Sports Medicine
DX: S76.011A Strain of muscle, fascia and tendon of right hip, initial encounter (principal); I25.10 Atherosclerotic heart disease of native coronary artery without angina pectoris; I10 Essential (primary) hypertension; E78.00 Pure hypercholesterolemia, unspecified; K21.9 Gastro-esophageal reflux disease without esophagitis; M19.90 Unspecified osteoarthritis, unspecified site; E11.9 Type 2 diabetes mellitus without complications; Z98.51 Tubal ligation status; Z90.49 Acquired absence of other specified parts of digestive tract; Z98.890 Other specified postprocedural states; Z87.891 Personal history of nicotine dependence; Z79.82 Long term (current) use of aspirin; Z79.84 Long term (current) use of oral hypoglycemic drugs; Z79.899 Other long term (current) drug therapy; Z82.49 Family history of ischemic heart disease and other diseases of the circulatory system; Z83.3 Family history of diabetes mellitus; Z88.0 Allergy status to penicillin; Z88.5 Allergy status to narcotic agent; Z88.8 Allergy status to other drugs, medicaments and biological substances; X58.XXXA Exposure to other specified factors, initial encounter; Y93.89 Activity, other specified; Y92.89 Other specified places as the place of occurrence of the external cause; Y99.8 Other external cause status
CPT/HCPCS: 27299; 82962; 97116; 97162; A4213; A4930; A6223; A6253; A6402; C1713; J0171; J0330; J0690; J1100; J1170; J1815; J1885; J2270; J2704; J2795; J3010; J3490